=== PATIENT | female | born 2000 | race Caucasian/White ===

== ENCOUNTER 2024-03-07 16:08 | Emergency (ER) | payer BC ==
[~2024-03-07] VITALS: Ht 162.6 cm; Wt 71.5 kg
[2024-03-07 16:35] VITALS: BP 105/70; PULSE 60; O2SAT 98
[2024-03-07 21:40] VITALS: RESP 16
[2024-03-07 21:54] VITALS: TEMP 98.7
[2024-03-07] MEDS ORDERED: ONDA-243 PO (22:00)
== END 2024-03-07 22:17 | disposition home or self-care (01) ==
LOC: ER 16:09
DX: S06.0X9A Concussion with loss of consciousness of unspecified duration, initial encounter (principal); M54.2 Cervicalgia; R42 Dizziness and giddiness; R11.0 Nausea; W22.8XXA Striking against or struck by other objects, initial encounter; Y93.17 Activity, water skiing and wake boarding; Y92.89 Other specified places as the place of occurrence of the external cause; Y99.8 Other external cause status
CPT/HCPCS: 70450; 72125; 99284